=== PATIENT | female | born 1980 | race Caucasian/White ===

== ENCOUNTER → 2017-01-17 | Outpatient (CLI) | payer OTHER ==
[~2017-01-17] MED LIST: ACET-1757 PO; ALPR0.25 PO; CEFD300C37 PO; DIPHENHYDRAMINE 50 MG/ML, 1ML ONE; LEVO750T26 PO; LORA-446 PO; METO10TA82 PO; METO5TAB57 BC; OMNIPAQUE 350 MG/ML, 100ML BOTTLE ONE; ONDA4TAB7 PO; OXYC-223 PO; OXYC-302 PO; PANT40TA3 PO; PROCHLORPERAZINE; SEPTRA DS; TRAZ100T15 PO; TRAZ150T68 PO; TRAZ50TA18 PO; VENL37.52 PO
== END | disposition home or self-care (01) ==
LOC: MERGE 01-15 10:00 → RAD 08:35
PROVIDERS: ATTEND Family Medicine
DX: C18.1 Malignant neoplasm of appendix (principal); K76.89 Other specified diseases of liver; Z90.81 Acquired absence of spleen
CPT/HCPCS: 74177; J1200; Q9967

== ENCOUNTER 2017-02-12 21:19 | Emergency (ER) | payer OTHER ==
[~2017-02-12] VITALS: Ht 157.5 cm; Wt 59.9 kg
[~2017-02-12 21:19] MED LIST changes: -DIPHENHYDRAMINE 50 MG/ML, 1ML ONE; -OMNIPAQUE 350 MG/ML, 100ML BOTTLE ONE
[2017-02-12] MEDS ORDERED: SODIUM CHLORIDE FLUSH 10ML SYR IVF ONE (22:00)
[2017-02-12] MEDS ORDERED: ONDANSETRON 2MG/ML, 2ML IVPush ONE ×2 (22:00→23:30)
[2017-02-12] MEDS ORDERED: SODIUM CHLORIDE 0.9% 1,000ML IVBOLUS ONE (22:00)
[2017-02-12 22:55] LABS: ASPARTATE AMINO TRANSFERASE 13 U/L (15-37); BLOOD UREA NITROGEN 17 mg/dL (7-18)
[2017-02-12] MEDS ORDERED: ONDANSETRON 2MG/ML, 2ML ONE (23:09)
[2017-02-12] MEDS ORDERED: HYDROmorphone 1 MG/ML, 1ML ONE (23:26)
[2017-02-12] MEDS ORDERED: methylPREDNISolone SOD SUCC 125 MG/2 ML IVPush ONE (23:30)
[2017-02-12] MEDS ORDERED: HYDROmorphone 1 MG/ML, 1ML IVPush PRN (23:30)
[2017-02-12] MEDS ORDERED: DIPHENHYDRAMINE 50 MG/ML, 1ML IVPush ONE (23:30)
[2017-02-12] MEDS ORDERED: methylPREDNISolone SOD SUCC 125 MG/2 ML ONE (23:33)
[2017-02-12] MEDS ORDERED: DIPHENHYDRAMINE 50 MG/ML, 1ML ONE (23:33)
[2017-02-12 23:52] LABS: HCG UR OBC PASS
[2017-02-13] MEDS ORDERED: OMNIPAQUE 350 MG/ML, 100ML BOTTLE ONE (01:00)
[2017-02-13 01:25] VITALS: BP 102/72
== END 2017-02-13 01:37 | disposition home or self-care (01) ==
LOC: ED 23:59
DX: R10.84 Generalized abdominal pain (principal); Z88.8 Allergy status to other drugs, medicaments and biological substances; F32.9 Major depressive disorder, single episode, unspecified; Z85.038 Personal history of other malignant neoplasm of large intestine; Z86.718 Personal history of other venous thrombosis and embolism
CPT/HCPCS: 36415; 74177; 80053; 81003; 81025; 83690; 85025; 96361; 96374; 96375; 99285; J1170; J1200; J2405; J2930; J7030; Q9967

== ENCOUNTER → 2018-01-02 | Outpatient (CLI) | payer OTHER ==
[~2018-01-02] MED LIST changes: +OMNIPAQUE 350 MG/ML, 100ML BOTTLE ONE; -OXYC-223 PO; +OXYC-306 PO; +TRAZ150T62 PO; -TRAZ150T68 PO
== END | disposition home or self-care (01) ==
LOC: RAD 11:09 → EDSTATUS 13:00
PROVIDERS: ATTEND Family Medicine
DX: I81 Portal vein thrombosis (principal); C18.1 Malignant neoplasm of appendix
CPT/HCPCS: 74177; Q9967

== ENCOUNTER 2019-09-03 09:04 | Day surgery (SDC) | payer OTHER ==
[~2019-09-03] VITALS: Ht 157.5 cm; Wt 70.8 kg
[~2019-09-03 09:04] MED LIST changes: -ACET-1757 PO; +ACET-2065 PO; -OMNIPAQUE 350 MG/ML, 100ML BOTTLE ONE; +TRAZ-175 PO; -TRAZ100T15 PO; -TRAZ50TA18 PO; +TRAZ50TA66 PO
[2019-09-03] MEDS ORDERED: LACTATED RINGERS 1,000 ML IV SCH (09:35)
[2019-09-03 09:37] VITALS: BP 132/90
[2019-09-03] MEDS ORDERED: PROM25SU35 PR (09:51)
[2019-09-03] MEDS ORDERED: GABA300C10 PO (09:51)
[2019-09-03] MEDS ORDERED: OXYC5CAP2 PO (09:51)
[2019-09-03] MEDS ORDERED: AMIT25TA PO (09:51)
[2019-09-03] MEDS ORDERED: RIVA20TA PO (09:51)
[2019-09-03] MEDS ORDERED: OMEP-110 PO (09:51)
[2019-09-03] MEDS ORDERED: ACET325C6 PO (09:51)
[2019-09-03] MEDS ORDERED: [UNRECOGNIZED DRUG - OTHER] (09:51)
[2019-09-03] MEDS ORDERED: PLEASE ENTER HEIGHT AND WEIGHT MC SCH (10:00)
[2019-09-03 10:05] LABS: MICROSCOPIC AUTO
[2019-09-03 10:07] LABS: CULTURE INDICATED? NO
[2019-09-03 10:51] LABS: BASOPHILS # (AUTO) 0.06 x10^3/uL (0-0.1); BASOPHILS % (AUTO) 1 % (0-1); EOSINOPHILS # (AUTO) 0.35 x10^3/uL (0-0.4); EOSINOPHILS % (AUTO) 4 % (1-7); LYMPHOCYTES # (AUTO) 2.33 x10^3/uL (1-3.4); LYMPHOCYTES % (AUTO) 26 % (22-44); MD NO; MEAN CORPUSCULAR HGB CONC 31.8 g/dL (32.4-35.8); MEAN CORPUSCULAR VOLUME 91.2 fL (80-100); MEAN PLATELET VOLUME 8.5 fL (7.4-10.4); MONOCYTES # (AUTO) 0.63 x10^3/uL (0.2-0.8); MONOCYTES % (AUTO) 7 % (2-9); NEUTROPHILS # (AUTO) 5.46 x10^3/uL (1.8-6.8); NEUTROPHILS % (AUTO) 62 % (42-75); PLATELET COUNT 429 x10^3/uL (130-400); RED BLOOD COUNT 4.15 x10^6/uL (3.82-5.3); RED CELL DISTRIBUTION WIDTH 15.4 % (9.6-15.2)
[2019-09-03 11:02] LABS: ANION GAP 9 mmol/L (5-15); CALCIUM 8.6 mg/dL (8.5-10.1); CHLORIDE 106 mmol/L (98-107)
[2019-09-03] MEDS ORDERED: MEPERIDINE/PF 25MG/ML,1ML IVPush PRN (13:00)
[2019-09-03] MEDS ORDERED: hydrALAzine 20 MG/ML, 1ML IV PRN (13:00)
[2019-09-03] MEDS ORDERED: PROMETHAZINE 25 MG/ML, 1ML IV PRN (13:00)
[2019-09-03] MEDS ORDERED: ALBUTEROL/IPRATROPIUM 2.5MG/0.5MG, 3 ML NPPB PRN (13:00)
[2019-09-03] MEDS ORDERED: MIDAZOLAM 1 MG/ML, 2ML IV PRN (13:00)
[2019-09-03] MEDS ORDERED: ACETAMINOPHEN 325 MG TABLET PO PRN (13:00)
[2019-09-03] MEDS ORDERED: FENTANYL PF 100 MCG/2ML IV PRN (13:00)
[2019-09-03] MEDS ORDERED: HYDROmorphone 2 MG/ML, 1ML IVPush PRN (13:00)
[2019-09-03] MEDS ORDERED: FENTANYL PF 100 MCG/2ML ONE (13:06)
[2019-09-03] MEDS ORDERED: MIDAZOLAM 1 MG/ML, 2ML ONE (13:06)
[2019-09-03] MEDS ORDERED: HYDROmorphone 2 MG/ML, 1ML ONE (13:48)
[2019-09-03] MEDS ORDERED: DIPHENHYDRAMINE 50 MG/ML, 1ML ONE (13:51)
[2019-09-03] MEDS ORDERED: PROPOFOL 10 MG/ML, 20ML ONE (14:26)
[2019-09-03] MEDS ORDERED: ONDANSETRON 2MG/ML, 2ML ONE (14:26)
[2019-09-03] MEDS ORDERED: DEXAMETHASONE 4 MG/ML, 1ML ONE (14:26)
[2019-09-03] MEDS ORDERED: CEFAZOLIN 1,000 MG ONE (14:26)
[2019-09-03] MEDS: OXYcodone 5 MG/5 ML ORAL.SOL UDC PO PRN ×2 (16:45→17:40)
== END 2019-09-03 17:45 | disposition home or self-care (01) ==
LOC: OUT 09:04
PROVIDERS: ATTEND Student in an Organized Health Care Education/Training Program
DX: N13.5 Crossing vessel and stricture of ureter without hydronephrosis (principal); C67.4 Malignant neoplasm of posterior wall of bladder; C67.0 Malignant neoplasm of trigone of bladder; K21.9 Gastro-esophageal reflux disease without esophagitis; F32.9 Major depressive disorder, single episode, unspecified; Z86.711 Personal history of pulmonary embolism; Z79.01 Long term (current) use of anticoagulants; Z79.891 Long term (current) use of opiate analgesic; Z79.899 Other long term (current) drug therapy; Z88.0 Allergy status to penicillin; Z88.1 Allergy status to other antibiotic agents; Z88.8 Allergy status to other drugs, medicaments and biological substances; Z90.49 Acquired absence of other specified parts of digestive tract
CPT/HCPCS: 36415; 52005; 52204; 80048; 81001; 85025; 88305; 88341; 88342; C1769; J0690; J1100; J1170; J1200; J2250; J2405; J2704; J3010; J7120

== ENCOUNTER 2020-05-18 15:10 | Day surgery (SDC) | payer OTHER ==
[~2020-05-18] VITALS: Ht 157.5 cm; Wt 76.0 kg
[~2020-05-18 15:10] MED LIST changes: +ACET325C6 PO; +AMIT25TA PO; +GABA300C10 PO; +OMEP-110 PO; +OXYC5CAP2 PO; +PROM25SU35 PR; +RIVA20TA PO; +[UNRECOGNIZED DRUG - OTHER]
[2020-05-18 15:42] VITALS: BP 116/82
[2020-05-18] MEDS ORDERED: CHLORHEXIDINE 15 ML UDC MM STA (15:47)
[2020-05-18] MEDS ORDERED: LACTATED RINGERS 1,000 ML IV SCH (16:00)
[2020-05-18] MEDS ORDERED: LEVO500T8 PO (16:03)
[2020-05-18] MEDS ORDERED: TROS60CA3 PO (16:03)
[2020-05-18 16:35] LABS: BASOPHILS % (AUTO) 1 % (0-1); EOSINOPHILS % (AUTO) 3 % (1-7); LYMPHOCYTES % (AUTO) 28 % (22-44); MEAN CORPUSCULAR HEMOGLOBIN 33.7 pg (27.0-34.8); MEAN CORPUSCULAR HGB CONC 32.9 g/dL (32.4-35.8); MEAN PLATELET VOLUME 7.9 fL (7.4-10.4); MONOCYTES % (AUTO) 9 % (2-9); NEUTROPHILS % (AUTO) 59 % (42-75); PLATELET COUNT 397 x10^3/uL (130-400); RED BLOOD COUNT 3.91 x10^6/uL (3.82-5.3); RED CELL DISTRIBUTION WIDTH 14.6 % (9.6-15.2)
[2020-05-18 16:40] LABS: INTERNATIONAL NORMALIZED RATIO 0.97 (0.93-1.1); PROTHROMBIN TIME 10.3 Seconds (9.6-11.5)
[2020-05-18 16:41] LABS: ANION GAP 5 mmol/L (5-15); CALCIUM 9.3 mg/dL (8.5-10.1); CHLORIDE 105 mmol/L (98-107); CREATININE 1.01 mg/dL (0.55-1.02)
[2020-05-18 16:52] LABS: MD NO
[2020-05-18] MEDS ORDERED: MIDAZOLAM 1 MG/ML, 2ML ONE (17:23)
[2020-05-18] MEDS ORDERED: ONDANSETRON 2MG/ML, 2ML ONE (17:51)
[2020-05-18] MEDS ORDERED: PROPOFOL 10 MG/ML, 20ML ONE (17:51)
[2020-05-18] MEDS ORDERED: DEXAMETHASONE 4 MG/ML, 1ML ONE (17:51)
[2020-05-18] MEDS ORDERED: GENTAMICIN 80 MG/2 ML ONE (18:07)
[2020-05-18] MEDS ORDERED: OPIUM/BELLADONNA SUPP.RECT 16.2-60 MG ONE (18:27)
[2020-05-18] MEDS ORDERED: OXYcodone 5 MG/5 ML ORAL.SOL UDC PO PRN (18:30)
[2020-05-18] MEDS ORDERED: DIAZEPAM 5 MG/ML, 2ML IVPush PRN (18:30)
[2020-05-18] MEDS ORDERED: DIPHENHYDRAMINE 50 MG/ML, 1ML IVPush PRN (18:30)
[2020-05-18] MEDS ORDERED: MEPERIDINE/PF 25MG/0.5ML IVPush PRN (18:30)
[2020-05-18] MEDS ORDERED: PROMETHAZINE 25 MG/ML, 1ML IVPush PRN (18:30)
[2020-05-18] MEDS ORDERED: ACETAMINOPHEN 325 MG TABLET PO PRN (18:30)
[2020-05-18] MEDS ORDERED: ONDANSETRON 2MG/ML, 2ML IVPush PRN (18:30)
[2020-05-18] MEDS ORDERED: FENTANYL PF 100 MCG/2ML ONE (18:37)
[2020-05-18] MEDS ORDERED: OXYcodone 5 MG/5 ML ORAL.SOL UDC ONE (19:46)
[2020-05-18] MEDS ORDERED: ACETAMINOPHEN 650 MG/20.3 ML UDC ONE (19:46)
[2020-05-18] MEDS ORDERED: HYDROmorphone 1 MG/ML, 1ML INJ ONE (19:52)
[2020-05-18] MEDS: HYDROmorphone 1 MG/ML, 1ML INJ IVPush PRN ×2 (19:53→20:04)
== END 2020-05-18 21:50 | disposition home or self-care (01) ==
LOC: OR 15:10 → 4NE 20:25 → OR 21:50
PROVIDERS: ATTEND Student in an Organized Health Care Education/Training Program
DX: T83.192A Other mechanical complication of indwelling ureteral stent, initial encounter (principal); Z20.828 Contact with and (suspected) exposure to other viral communicable diseases; N13.30 Unspecified hydronephrosis; C67.9 Malignant neoplasm of bladder, unspecified; C78.6 Secondary malignant neoplasm of retroperitoneum and peritoneum; Z79.01 Long term (current) use of anticoagulants; Z79.899 Other long term (current) drug therapy; Z85.09 Personal history of malignant neoplasm of other digestive organs; Z86.718 Personal history of other venous thrombosis and embolism; Z86.711 Personal history of pulmonary embolism; Z88.0 Allergy status to penicillin; Z88.8 Allergy status to other drugs, medicaments and biological substances; Z90.49 Acquired absence of other specified parts of digestive tract; Z92.21 Personal history of antineoplastic chemotherapy; Z93.3 Colostomy status; Z91.041 Radiographic dye allergy status; Y83.8 Other surgical procedures as the cause of abnormal reaction of the patient, or of later complication, without mention of misadventure at the time of the procedure
CPT/HCPCS: 36415; 52235; 52332; 74018; 80048; 85025; 85610; 85730; 87635; 88305; C2617; J1100; J1170; J1580; J2250; J2405; J2704; J3010; J7120; 76000; G0378

== ENCOUNTER 2020-06-20 08:00 | Observation (INO) | payer OTHER ==
[~2020-06-20] VITALS: Ht 157.5 cm; Wt 73.0 kg
[~2020-06-20 08:00] MED LIST changes: +LEVO500T8 PO; +TROS60CA3 PO
[2020-06-20] MEDS ORDERED: ONABOTULINUMTOXINA 100 UNITS ONE (10:02)
[2020-06-20] MEDS ORDERED: FENTANYL PF 100 MCG/2ML ONE (11:03)
[2020-06-20] MEDS ORDERED: MIDAZOLAM 1 MG/ML, 2ML ONE (11:03)
[2020-06-20] MEDS ORDERED: LIDOCAINE-MPF 2% ,5ML ONE (11:50)
[2020-06-20] MEDS ORDERED: GENTAMICIN 80 MG/2 ML ONE (11:50)
[2020-06-20] MEDS ORDERED: MEPERIDINE/PF 100 MG/ML ONE (11:55)
[2020-06-20] MEDS ORDERED: METHOCARBAMOL 1,000 MG in DEXTROSE 5% 100 ML IV PRN (12:00)
[2020-06-20] MEDS ORDERED: hydrALAzine 20 MG/ML, 1ML IV PRN (12:00)
[2020-06-20] MEDS ORDERED: ACETAMINOPHEN 325 MG TABLET PO PRN (12:00)
[2020-06-20] MEDS ORDERED: ALBUTEROL SULFATE 2.5 MG/3 ML NPPB PRN (12:00)
[2020-06-20] MEDS ORDERED: LABETALOL 5MG/ML, 20ML IV PRN (12:00)
[2020-06-20] MEDS ORDERED: PROMETHAZINE 25 MG/ML, 1ML IVPush PRN (12:00)
[2020-06-20] MEDS ORDERED: MEPERIDINE/PF 25MG/0.5ML IVPush PRN (12:00)
[2020-06-20] MEDS ORDERED: HYDROmorphone 1 MG/ML, 1ML INJ IVPush PRN (12:00)
[2020-06-20] MEDS ORDERED: OXYcodone 5 MG/5 ML ORAL.SOL UDC PO PRN (12:00)
[2020-06-20] MEDS ORDERED: LORazepam 2 MG/ML, 1ML IVPush PRN (12:00)
[2020-06-20] MEDS ORDERED: DEXAMETHASONE 4 MG/ML, 1ML ONE (12:20)
[2020-06-20] MEDS ORDERED: ONDANSETRON 2MG/ML, 2ML ONE (12:20)
[2020-06-20] MEDS ORDERED: PROPOFOL 10 MG/ML, 20ML ONE (12:20)
[2020-06-20] MEDS ORDERED: PLEASE ENTER HEIGHT AND WEIGHT MC SCH (12:30)
[2020-06-20 13:36] VITALS: BP 100/71
== END 2020-06-20 16:00 | disposition home or self-care (01) ==
LOC: OR 08:00 → 4NE 08:28 → OR 13:42 → DCLOUNGE 15:53
PROVIDERS: ADMIT Student in an Organized Health Care Education/Training Program; ATTEND Student in an Organized Health Care Education/Training Program
DX: C78.5 Secondary malignant neoplasm of large intestine and rectum (principal); Z20.828 Contact with and (suspected) exposure to other viral communicable diseases; C79.11 Secondary malignant neoplasm of bladder; C78.6 Secondary malignant neoplasm of retroperitoneum and peritoneum; N13.30 Unspecified hydronephrosis; N32.81 Overactive bladder; N32.89 Other specified disorders of bladder; N39.41 Urge incontinence; I25.10 Atherosclerotic heart disease of native coronary artery without angina pectoris; K21.9 Gastro-esophageal reflux disease without esophagitis; Z88.0 Allergy status to penicillin; Z86.711 Personal history of pulmonary embolism; Z93.3 Colostomy status; Z85.51 Personal history of malignant neoplasm of bladder; Z79.899 Other long term (current) drug therapy
CPT/HCPCS: 52235; 52287; 87635; G0378; J0585; J1100; J1580; J2175; J2250; J2405; J2704; J3010; J3490

== ENCOUNTER 2020-09-08 13:35 | Day surgery (SDC) | payer OTHER ==
[~2020-09-08] VITALS: Ht 157.5 cm; Wt 79.4 kg
[~2020-09-08 13:35] MED LIST changes: -OXYC-302 PO; -OXYC-306 PO; +OXYC1TAB14 PO; +OXYC1TAB17 PO
[2020-09-08] MEDS ORDERED: XELODA PO (14:07)
[2020-09-08] MEDS ORDERED: SULF-16 PO (14:07)
[2020-09-08] MEDS ORDERED: PLEC3TAB2 PO (14:07)
[2020-09-08] MEDS ORDERED: LACTATED RINGERS 1,000 ML IV SCH (14:30)
[2020-09-08] MEDS ORDERED: CHLORHEXIDINE 15 ML UDC MM ONE (14:30)
[2020-09-08 14:51] VITALS: BP 103/73
[2020-09-08] MEDS ORDERED: MIDAZOLAM 1 MG/ML, 2ML ONE (15:09)
[2020-09-08] MEDS ORDERED: MORPHINE SULFATE 4 MG/ML, 1ML ONE (15:13)
[2020-09-08] MEDS ORDERED: CEFAZOLIN 1,000 MG ONE (15:38)
[2020-09-08] MEDS ORDERED: DEXAMETHASONE 4 MG/ML, 1ML ONE (15:38)
[2020-09-08] MEDS ORDERED: PROPOFOL 10 MG/ML, 20ML ONE (15:38)
[2020-09-08] MEDS ORDERED: ONDANSETRON 2MG/ML, 2ML ONE (15:38)
[2020-09-08] MEDS ORDERED: HYDROmorphone 1 MG/ML, 1ML INJ IVPush PRN (16:00)
[2020-09-08] MEDS ORDERED: PROMETHAZINE 25 MG SUPP PR PRN (16:00)
[2020-09-08] MEDS ORDERED: LORazepam 2 MG/ML, 1ML IVPush PRN (16:00)
[2020-09-08] MEDS ORDERED: PROMETHAZINE 25 MG/ML, 1ML IVPush PRN (16:00)
[2020-09-08] MEDS ORDERED: ACETAMINOPHEN 325 MG TABLET PO PRN (16:00)
[2020-09-08] MEDS ORDERED: ONDANSETRON 2MG/ML, 2ML IVPush PRN (16:00)
[2020-09-08] MEDS ORDERED: MEPERIDINE/PF 25MG/0.5ML IVPush PRN (16:00)
[2020-09-08] MEDS ORDERED: OXYcodone 5 MG/5 ML ORAL.SOL UDC PO PRN (16:00)
[2020-09-08] MEDS ORDERED: OXYcodone 5 MG/5 ML ORAL.SOL UDC ONE (16:06)
== END 2020-09-08 18:00 | disposition home or self-care (01) ==
LOC: OUT 13:35
PROVIDERS: ATTEND Student in an Organized Health Care Education/Training Program
DX: T83.192A Other mechanical complication of indwelling ureteral stent, initial encounter (principal); N13.30 Unspecified hydronephrosis; Z20.822 Contact with and (suspected) exposure to COVID-19; Z79.01 Long term (current) use of anticoagulants; Z79.899 Other long term (current) drug therapy; Z86.718 Personal history of other venous thrombosis and embolism; Z88.0 Allergy status to penicillin; Z88.8 Allergy status to other drugs, medicaments and biological substances; Y83.8 Other surgical procedures as the cause of abnormal reaction of the patient, or of later complication, without mention of misadventure at the time of the procedure
CPT/HCPCS: 52332; 74018; 87635; C2617; J0690; J1100; J2250; J2405; J2704; 76000

== ENCOUNTER 2020-10-05 12:12 | Day surgery (SDC) | payer OTHER ==
[~2020-10-05] VITALS: Ht 157.5 cm; Wt 79.6 kg
[~2020-10-05 12:12] MED LIST changes: +CAPE500T24 PO; +GABA300C PO; +PLEC3TAB2 PO; +RIVA10TA2 PO; +SULF-16 PO; +XELODA PO
[2020-10-05] MEDS ORDERED: LABETALOL 5MG/ML, 20ML IV PRN (13:00)
[2020-10-05] MEDS ORDERED: HYDROcodone/APAP 7.5-325MG/15ML UDC PO PRN (13:00)
[2020-10-05] MEDS ORDERED: CHLORHEXIDINE 15 ML UDC MM ONE (13:00)
[2020-10-05] MEDS ORDERED: DIPHENHYDRAMINE 50 MG/ML, 1ML IVPush PRN (13:00)
[2020-10-05] MEDS ORDERED: LORazepam 2 MG/ML, 1ML IVPush PRN ×2 (13:00→15:00)
[2020-10-05] MEDS ORDERED: LACTATED RINGERS 1,000 ML IV SCH (13:00)
[2020-10-05] MEDS ORDERED: FENTANYL PF 100 MCG/2ML IV PRN ×2 (13:00→15:00)
[2020-10-05] MEDS ORDERED: hydrALAzine 20 MG/ML, 1ML IV PRN (13:00)
[2020-10-05] MEDS ORDERED: HALOPERIDOL 5 MG/ML IV PRN (13:00)
[2020-10-05] MEDS ORDERED: PROMETHAZINE 25 MG/ML, 1ML IVPush PRN (13:00)
[2020-10-05] MEDS ORDERED: HYDROmorphone 1 MG/ML, 1ML INJ IVPush PRN ×2 (13:00→15:00)
[2020-10-05 13:02] VITALS: BP 104/73
[2020-10-05] MEDS ORDERED: ONABOTULINUMTOXINA 100 UNITS ONE (14:16)
[2020-10-05] MEDS ORDERED: FENTANYL PF 100 MCG/2ML ONE (14:35)
[2020-10-05] MEDS ORDERED: MIDAZOLAM 1 MG/ML, 2ML ONE (14:35)
[2020-10-05] MEDS ORDERED: LIDOCAINE 2% 100MG/5ML SYRINGE ONE (14:37)
[2020-10-05] MEDS ORDERED: PROPOFOL 10 MG/ML, 20ML ONE (14:37)
[2020-10-05] MEDS ORDERED: SUCCINYLCHOLINE 20 MG/ML, 10ML ONE (14:42)
[2020-10-05] MEDS ORDERED: ACETAMINOPHEN 325 MG TABLET PO PRN (15:00)
[2020-10-05] MEDS ORDERED: OXYcodone 5 MG/5 ML ORAL.SOL UDC PO PRN (15:00)
[2020-10-05] MEDS ORDERED: KETOROLAC 30 MG/1 ML IVPush PRN (15:00)
[2020-10-05] MEDS ORDERED: MEPERIDINE/PF 25MG/0.5ML IVPush PRN (15:00)
[2020-10-05] MEDS ORDERED: PHENYLEPHRINE 10 MG/ML ONE (15:19)
[2020-10-05] MEDS ORDERED: KETOROLAC 30 MG/1 ML ONE (15:19)
[2020-10-05] MEDS ORDERED: DEXAMETHASONE 4 MG/ML, 1ML ONE (15:19)
[2020-10-05] MEDS ORDERED: ONDANSETRON 2MG/ML, 2ML ONE (15:19)
== END 2020-10-05 18:15 | disposition home or self-care (01) ==
LOC: OUT 12:12
PROVIDERS: ATTEND Student in an Organized Health Care Education/Training Program
DX: N13.30 Unspecified hydronephrosis (principal); N39.41 Urge incontinence; C67.9 Malignant neoplasm of bladder, unspecified; C78.5 Secondary malignant neoplasm of large intestine and rectum; Z20.822 Contact with and (suspected) exposure to COVID-19; Z79.899 Other long term (current) drug therapy; Z88.8 Allergy status to other drugs, medicaments and biological substances; Z96.0 Presence of urogenital implants
CPT/HCPCS: 52287; J0330; J0585; J1100; J1885; J2250; J2370; J2405; J2704; J3010; J7120; U0003

== ENCOUNTER 2020-12-22 20:52 | Emergency (ER) | payer OTHER ==
[~2020-12-22] VITALS: Ht 157.5 cm; Wt 83.1 kg
--- NOTE | 2020-12-22 21:28 | NUR ---
CC OF SOB AND "DRY COUGHING SPELLS" AND PAIN IN BLADDER. 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 PT ALSO STATES SHE GETS BOTOX IN HER BLADDER TO HELP WITH SPASMS AND STATES THIS FEELS SIMILAR TO PAST ISSUES WITH BLADDER. SP02 98% ON RA. PT IS ON ORAL CHEMO, 2 WEEKS ON 1 WEEK OFF, LAST TREATMENT LAST SUNDAY.
--- NOTE | 2020-12-22 22:16 | NUR ---
RELIEF RN: BINDU ESBT, LABS DRAWN & SENT. AMBULATORY TO RESTROOM C STEADY GAIT, UA COLLECTED & SENT. PT DENIES ANY NEEDS. CALL LIGHT IN REACH. CXR COMPLETED. WILL CTM.
[2020-12-22 22:20] LABS: BASOPHILS % (AUTO) 1 % (0-1); EOSINOPHILS % (AUTO) 3 % (1-7); LYMPHOCYTES % (AUTO) 28 % (22-44); MEAN CORPUSCULAR HEMOGLOBIN 31.6 pg (27.0-34.8); MEAN CORPUSCULAR HGB CONC 33.3 g/dL (32.4-35.8); MEAN PLATELET VOLUME 7.2 fL (7.4-10.4); MONOCYTES % (AUTO) 11 % (2-9); NEUTROPHILS % (AUTO) 58 % (42-75); PLATELET COUNT 437 x10^3/uL (130-400); RED BLOOD COUNT 2.74 x10^6/uL (3.82-5.3); RED CELL DISTRIBUTION WIDTH 26.7 % (9.6-15.2)
[2020-12-22] MEDS ORDERED: ONDANSETRON 2MG/ML, 2ML ONE (22:25)
[2020-12-22] MEDS ORDERED: MORPHINE SULFATE 4 MG/ML, 1ML ONE (22:25)
[2020-12-22] MEDS ORDERED: MORPHINE SULFATE 4 MG/ML, 1ML IVPush PRN (22:30)
[2020-12-22] MEDS ORDERED: ONDANSETRON 2MG/ML, 2ML IVPush ONE (22:30)
[2020-12-22 22:31] LABS: ALANINE AMINOTRANSFERASE 19 U/L (12-78); ALBUMIN 3.2 g/dL (3.4-5.0); ANION GAP 9 mmol/L (5-15); CALCIUM 8.2 mg/dL (8.5-10.1); CHLORIDE 105 mmol/L (98-107)
[2020-12-22 22:36] LABS: ALKALINE PHOSPHATASE 133 U/L (45-117); BILIRUBIN,TOTAL 0.2 mg/dL (0.2-1.0); TOTAL PROTEIN 7.3 g/dL (6.4-8.2); TROPONIN I < 0.015 ng/mL (0.000-0.045)
[2020-12-22 22:37] LABS: MD MORPH REVIEW ONLY
[2020-12-22 22:38] LABS: <PLATELET ESTIMATE> ADEQUATE; <PLT MORPHOLOGY> NORMAL PLT MORPH; ANISOCYTOSIS 2+; HOWELL-JOLLY BODIES 1+; TARGET CELLS 1+
[2020-12-22 22:38] LABS: D-DIMER 0.44 ug/mlFEU (0.00-0.52); INTERNATIONAL NORMALIZED RATIO 0.99 (0.93-1.1); PROTHROMBIN TIME 10.6 Seconds (9.6-11.5)
[2020-12-22 22:40] LABS: HYPOCHROMIA 1+
[2020-12-22 22:54] LABS: MICROSCOPIC INDICATED
--- NOTE | 2020-12-22 23:10 | NUR ---
US AT BEDSIDE
[2020-12-23] MEDS ORDERED: DOXYCYCLINE 100MG TABLET PO ONE
[2020-12-23] MEDS ORDERED: DOXYCYCLINE 100MG TABLET ONE (00:22)
[2020-12-23 00:24] VITALS: BP 95/67
== END 2020-12-23 01:12 | disposition home or self-care (01) ==
LOC: ED 22:10
DX: J18.1 Lobar pneumonia, unspecified organism (principal); R06.02 Shortness of breath; R00.0 Tachycardia, unspecified; Z86.718 Personal history of other venous thrombosis and embolism; Z90.49 Acquired absence of other specified parts of digestive tract
CPT/HCPCS: 36415; 71045; 80053; 81001; 83880; 84484; 85025; 85379; 85610; 87086; 93005; 93970; 96374; 96375; 99285; J2270; J2405

== ENCOUNTER 2020-12-25 15:03 | Emergency (ER) | payer OTHER ==
[~2020-12-25] VITALS: Ht 157.5 cm; Wt 83.0 kg
--- NOTE | 2020-12-25 15:17 | NUR ---
EKG COMPLETED IN TRIAGE.
--- NOTE | 2020-12-25 15:31 | NUR ---
SMALL AMOUNT OF BLOOD TINGED URINE COLLECTED/WALKED TO LAB
[2020-12-25 15:49] LABS: MICROSCOPIC INDICATED
[2020-12-25 15:55] LABS: BASOPHILS % (AUTO) 1 % (0-1); EOSINOPHILS % (AUTO) 4 % (1-7); LYMPHOCYTES % (AUTO) 37 % (22-44); MEAN CORPUSCULAR HEMOGLOBIN 31.4 pg (27.0-34.8); MEAN CORPUSCULAR HGB CONC 32.6 g/dL (32.4-35.8); MEAN PLATELET VOLUME 7.3 fL (7.4-10.4); MONOCYTES % (AUTO) 10 % (2-9); NEUTROPHILS % (AUTO) 49 % (42-75); PLATELET COUNT 418 x10^3/uL (130-400); RED BLOOD COUNT 2.69 x10^6/uL (3.82-5.3); RED CELL DISTRIBUTION WIDTH 26.7 % (9.6-15.2)
[2020-12-25 16:05] LABS: ALANINE AMINOTRANSFERASE 21 U/L (12-78); ALBUMIN 3.2 g/dL (3.4-5.0); ANION GAP 8 mmol/L (5-15); CALCIUM 8.5 mg/dL (8.5-10.1); CHLORIDE 107 mmol/L (98-107); CREATININE 1.09 mg/dL (0.55-1.02)
[2020-12-25 16:08] LABS: ALKALINE PHOSPHATASE 141 U/L (45-117); BILIRUBIN,TOTAL 0.3 mg/dL (0.2-1.0)
[2020-12-25 16:18] LABS: MD MORPH REVIEW ONLY
[2020-12-25 16:19] LABS: ANISOCYTOSIS 2+
[2020-12-25 16:20] LABS: HOWELL-JOLLY BODIES 2+; HYPOCHROMIA 1+; POLYCHROMASIA 1+; TARGET CELLS 1+
[2020-12-25 16:22] LABS: <PLATELET ESTIMATE> INCREASED; <PLT MORPHOLOGY> NORMAL PLT MORPH
--- NOTE | 2020-12-25 18:18 | NUR ---
EDGE INKER UPPERS: PT TO ROOM FROM LOBBY
--- NOTE | 2020-12-25 18:19 | NUR ---
REPEAT VS, REPEAT FS 81
--- NOTE | 2020-12-25 19:10 | NUR ---
PT PROVIDED W/ JUICE OKAY PER ERP.
--- NOTE | 2020-12-25 19:37 | NUR ---
THIS IS A 40 YO F W/ C/O FATIGUE AND LUQ ABD DISCOMFORT. PT REPORTS BS 49 YESTERDAY AND HAD SAME SYMPTOMS, WAS TOLD BY ONCOLOGIST TO COME TO ED IF SYMPTOMS PERSIST. PT HAS HX OF CANCER W/ METASTASIS. PT RESTING ON GURNEY W/ CALL LIGHT IN REACH AND SIDE RAILS UPX2. RESP EVEN AND UNLABORED, NADN. AWAITING RECHECK.
[2020-12-25 20:07] LABS: % IRON SATURATION 3 % (20-55); IRON LEVEL 16 mcg/dL (50-170); TOTAL IRON BINDING CAPACITY 500 mcg/dL (250-450)
[2020-12-25 20:49] VITALS: BP 111/64
--- NOTE | 2020-12-25 20:53 | NUR ---
Patient/Caregiver given discharge instructions and they have confirmed that they understand the instructions. Patient ambulatory with steady gait. NAD, all questions answered appropriately, denies additional needs at this time. No personal belongings left in room after discharge.
== END 2020-12-25 20:55 | disposition home or self-care (01) ==
LOC: ED 17:09
DX: R53.1 Weakness (principal); R42 Dizziness and giddiness; D64.9 Anemia, unspecified; E16.2 Hypoglycemia, unspecified; C18.1 Malignant neoplasm of appendix; K59.00 Constipation, unspecified; R00.0 Tachycardia, unspecified; Z90.49 Acquired absence of other specified parts of digestive tract; Z90.710 Acquired absence of both cervix and uterus; Z88.6 Allergy status to analgesic agent; Z88.0 Allergy status to penicillin; Z88.1 Allergy status to other antibiotic agents; Z91.041 Radiographic dye allergy status; Z90.89 Acquired absence of other organs
CPT/HCPCS: 36415; 71045; 80053; 81001; 82962; 83540; 83550; 83690; 85025; 87086; 93005; 99285

== ENCOUNTER 2021-01-03 14:49 | Outpatient (CLI) | payer OTHER ==
[2021-01-03] MEDS ORDERED: TAMS-11 PO (16:25)
[2021-01-03] MEDS ORDERED: NITR100C56 PO (16:25)
== END 2021-01-03 23:59 | disposition home or self-care (01) ==
LOC: STAR 14:49
PROVIDERS: ATTEND Student in an Organized Health Care Education/Training Program
DX: Z02.9 Encounter for administrative examinations, unspecified (principal)

== ENCOUNTER 2021-01-06 13:31 | Day surgery (SDC) | payer OTHER ==
[2021-01-03 16:24] LABS: BASOPHILS % (AUTO) 1 % (0-1); EOSINOPHILS % (AUTO) 2 % (1-7); LYMPHOCYTES % (AUTO) 31 % (22-44); MEAN CORPUSCULAR HEMOGLOBIN 30.1 pg (27.0-34.8); MEAN CORPUSCULAR HGB CONC 32.4 g/dL (32.4-35.8); MEAN PLATELET VOLUME 7.9 fL (7.4-10.4); MONOCYTES % (AUTO) 10 % (2-9); NEUTROPHILS % (AUTO) 56 % (42-75); PLATELET COUNT 505 x10^3/uL (130-400); RED CELL DISTRIBUTION WIDTH 25.9 % (9.6-15.2)
[2021-01-03 16:35] LABS: INTERNATIONAL NORMALIZED RATIO 1.03 (0.93-1.1)
[2021-01-03 16:37] LABS: ANION GAP 6 mmol/L (5-15); CALCIUM 8.5 mg/dL (8.5-10.1); CHLORIDE 102 mmol/L (98-107); CREATININE 1.05 mg/dL (0.55-1.02)
[2021-01-03 17:07] LABS: ANISOCYTOSIS 1+; HOWELL-JOLLY BODIES 1+; MICROCYTOSIS 1+; TARGET CELLS 1+
[2021-01-03 17:08] LABS: MICROSCOPIC INDICATED
[2021-01-03 17:08] LABS: <PLATELET ESTIMATE> INCREASED; GIANT PLATELETS 1+
[~2021-01-06] VITALS: Ht 157.5 cm; Wt 81.4 kg
[~2021-01-06 13:31] MED LIST changes: +NITR100C56 PO; +TAMS-11 PO
[2021-01-06] MEDS ORDERED: CHLORHEXIDINE 15 ML UDC ONE (13:44)
[2021-01-06] MEDS ORDERED: CLINDAMYCIN 150 MG/ML, 6ML ONE (13:52)
[2021-01-06 13:57] VITALS: BP 122/85
[2021-01-06] MEDS ORDERED: LACTATED RINGERS 1,000 ML IV SCH (14:00)
[2021-01-06] MEDS ORDERED: ONABOTULINUMTOXINA 100 UNITS IM PRN (14:00)
[2021-01-06] MEDS ORDERED: CHLORHEXIDINE 15 ML UDC PO ONE (14:00)
[2021-01-06] MEDS ORDERED: OMNIPAQUE 350 MG/ML, 50 ML BOTTLE ONE (14:06)
[2021-01-06] MEDS ORDERED: FENTANYL PF 100 MCG/2ML ONE (14:20)
[2021-01-06] MEDS ORDERED: MIDAZOLAM 1 MG/ML, 2ML ONE (14:20)
[2021-01-06] MEDS ORDERED: GENTAMICIN 80 MG/2 ML ONE (14:47)
[2021-01-06] MEDS ORDERED: PROPOFOL 10 MG/ML, 20ML ONE (14:57)
[2021-01-06] MEDS ORDERED: CEFAZOLIN 1,000 MG ONE (14:57)
[2021-01-06] MEDS ORDERED: ONDANSETRON 2MG/ML, 2ML ONE (14:57)
[2021-01-06] MEDS ORDERED: DEXAMETHASONE 4 MG/ML, 1ML ONE (14:57)
[2021-01-06] MEDS ORDERED: HYDROmorphone 1 MG/ML, 1ML INJ ONE (15:44)
[2021-01-06] MEDS ORDERED: OXYcodone 5 MG/5 ML ORAL.SOL UDC ONE (15:44)
[2021-01-06] MEDS ORDERED: EPHEDRINE 50 MG/ML, 1ML IVPush PRN (16:00)
[2021-01-06] MEDS ORDERED: ACETAMINOPHEN 325 MG TABLET PO PRN (16:00)
[2021-01-06] MEDS ORDERED: ONDANSETRON 2MG/ML, 2ML IVPush PRN (16:00)
[2021-01-06] MEDS ORDERED: morphine SULFATE 10 MG/ML, 1ML IVPush PRN (16:00)
[2021-01-06] MEDS ORDERED: FENTANYL PF 100 MCG/2ML IV PRN (16:00)
[2021-01-06] MEDS ORDERED: OXYcodone 5 MG/5 ML ORAL.SOL UDC PO PRN (16:00)
[2021-01-06] MEDS ORDERED: hydrALAzine 20 MG/ML, 1ML IV PRN (16:00)
[2021-01-06] MEDS ORDERED: PROMETHAZINE 25 MG/ML, 1ML IVPush PRN (16:00)
[2021-01-06] MEDS ORDERED: LABETALOL 5MG/ML, 20ML IV PRN (16:00)
[2021-01-06] MEDS ORDERED: HYDROmorphone 1 MG/ML, 1ML INJ IVPush PRN (16:00)
== END 2021-01-06 17:00 | disposition home or self-care (01) ==
LOC: OUT 13:31
PROVIDERS: ATTEND Student in an Organized Health Care Education/Training Program
DX: Z46.6 Encounter for fitting and adjustment of urinary device (principal); N13.30 Unspecified hydronephrosis; N39.41 Urge incontinence; Z20.822 Contact with and (suspected) exposure to COVID-19; Z79.01 Long term (current) use of anticoagulants; Z79.899 Other long term (current) drug therapy; Z86.718 Personal history of other venous thrombosis and embolism
CPT/HCPCS: 36415; 52287; 52332; 74018; 80048; 81001; 82962; 85025; 85610; 87086; C1769; C2617; J0585; J1100; J1170; J1580; J2250; J2405; J2704; J3010; J7120; U0003; U0005; 76000; J0690; Q9967

== ENCOUNTER 2021-01-07 22:50 | Emergency (ER) | payer OTHER ==
[~2021-01-07] VITALS: Ht 165.1 cm; Wt 77.0 kg
--- NOTE | 2021-01-07 23:16 | NUR ---
PT. ARRIVES BY [facility] WITH C/O CHEST PAIN WELL LEFT FLANK PAIN. PT. IS A & O X 4 WITH A GCS OF 15. PT. HAD A STENT PLACED IN HER LEFT URETER YESTERDAY. PT. HAS A HX OF METASTATIC CANCER THROUGHOUT HER BODY AND INTO HER LUNGS. PT. HAS A COLOSTOMY ON HER LEFT LOWER QUADRANT. PT. REPORTS SIGNIFICANT PAIN WITH URINATION. IV ACCESS ESTABLISHED. PT. HAS NS INFUSING. PT. WAS TAKEN TO RADIOLOGY.
[2021-01-07] MEDS ORDERED: LORazepam 2 MG/ML, 1ML IVPush ONE (23:30)
[2021-01-07] MEDS ORDERED: HYDROmorphone 1 MG/ML, 1ML INJ IV ONE (23:30)
[2021-01-07] MEDS ORDERED: SODIUM CHLORIDE FLUSH 10ML SYR IVF ONE (23:30)
[2021-01-07] MEDS ORDERED: ONDANSETRON 2MG/ML, 2ML IVPush ONE (23:30)
--- NOTE | 2021-01-07 23:50 | NUR ---
PT. RETURNS FROM RADIOLOGY. PT. WAS MEDICATED FOR PAIN AND ANXIETY ORDERED. PT. HAS THE CP MONITOR IN PLACE. VSS. SIDERAILS REMAIN UP X 2 WITH THE CALL LIGHT IN PLACE. PT. HAS A BLANKET FOR WARMTH.
[2021-01-08 00:13] LABS: BASOPHILS % (AUTO) 1 % (0-1); EOSINOPHILS % (AUTO) 3 % (1-7); LYMPHOCYTES % (AUTO) 34 % (22-44); MEAN CORPUSCULAR HEMOGLOBIN 29.2 pg (27.0-34.8); MEAN CORPUSCULAR HGB CONC 31.7 g/dL (32.4-35.8); MEAN PLATELET VOLUME 7.5 fL (7.4-10.4); MONOCYTES % (AUTO) 9 % (2-9); NEUTROPHILS % (AUTO) 54 % (42-75); PLATELET COUNT 478 x10^3/uL (130-400); RED CELL DISTRIBUTION WIDTH 25.4 % (9.6-15.2)
[2021-01-08 00:23] LABS: ALANINE AMINOTRANSFERASE 14 U/L (12-78); ALBUMIN 2.4 g/dL (3.4-5.0); ANION GAP 5 mmol/L (5-15); CHLORIDE 112 mmol/L (98-107); CREATININE 0.95 mg/dL (0.55-1.02)
[2021-01-08 00:28] LABS: ALKALINE PHOSPHATASE 134 U/L (45-117); BILIRUBIN,TOTAL 0.1 mg/dL (0.2-1.0)
--- NOTE | 2021-01-08 00:50 | NUR ---
PT. REPORT GIVEN
--- NOTE | 2021-01-08 01:05 | NUR ---
Patient care assumed. Patient sleeping in [facility]. Respirations even and unlabored.
[2021-01-08 01:06] LABS: HYPOCHROMIA 2+
[2021-01-08 01:07] LABS: MICROCYTOSIS 2+; POLYCHROMASIA 1+; TARGET CELLS 1+
[2021-01-08 01:09] LABS: HOWELL-JOLLY BODIES 1+
[2021-01-08 01:10] LABS: <PLATELET ESTIMATE> INCREASED; <PLT MORPHOLOGY> NORMAL PLT MORPH
--- NOTE | 2021-01-08 01:30 | NUR ---
Patient unable to provide urine at this time.
--- NOTE | 2021-01-08 01:53 | NUR ---
Urine collected and sent to lab. Patient feeling nauseous. Meds admin per sep.
[2021-01-08] MEDS ORDERED: ONDANSETRON 2MG/ML, 2ML IVPush ONE (02:00)
[2021-01-08 02:05] LABS: MICROSCOPIC INDICATED
[2021-01-08] MEDS ORDERED: HYDROcodone/APAP 5/325 TABLET PO ONE (03:00)
[2021-01-08 03:01] VITALS: BP 103/60
[2021-01-08] MEDS ORDERED: HYDROcodone/APAP 5/325 TABLET ONE (03:03)
--- NOTE | 2021-01-08 03:11 | NUR ---
Medicated patient per sep. Discharge instructions given. All questions and concerns addressed. Patient ambulatory with a steady gait. Belongings with patient.
== END 2021-01-08 03:13 | disposition home or self-care (01) ==
LOC: ED 22:57
DX: N30.01 Acute cystitis with hematuria (principal); D53.9 Nutritional anemia, unspecified; R07.89 Other chest pain; R10.12 Left upper quadrant pain; R10.32 Left lower quadrant pain; Z86.718 Personal history of other venous thrombosis and embolism; Z90.49 Acquired absence of other specified parts of digestive tract
CPT/HCPCS: 36415; 74018; 76770; 80053; 81001; 83690; 84703; 85025; 87086; 96374; 96375; 96376; 99285; J1170; J2060; J2405

== ENCOUNTER 2021-01-12 11:31 | Emergency (ER) | payer OTHER ==
[~2021-01-12] VITALS: Ht 157.5 cm; Wt 81.9 kg
--- NOTE | 2021-01-12 14:23 | NUR ---
PT. IS A & O X 4 WITH A GCS OF 15. PT. PRESENTS TO THE ED WITH C/O WEAKNESS AND FEELIGN POORLY. PT. STATES SHE IS ANEMIC AND IS SCHEDULED FOR A BLOOD TRANSFUSION TOMORROW. PT. REPORTS CHEST TIGHTNESS AND FEELING NOT WELL. 12 LEAD EKG WAS DONE. LABS DRAWN AND SENT. PT. HAS THE CP MONITOR IN PLACE. PT.'S LUNGS ARE CTA. PT. IS PALE WITH CAP REFILL LESS THAN 3 SECONDS. PULSES ARE +2 THROUGHOUT. PT.'S ABD. IS SOFT AND ROUND WITH BS X 4 QUADS. PT.'S HOB IS ELEVATED GREATER THAN 30 DEGREES. VSS. SIDERAILS REMAIN UP X 2 WITH THE CALL LIGHT IN PLACE.
[2021-01-12 14:27] LABS: BASOPHILS % (AUTO) 1 % (0-1); EOSINOPHILS % (AUTO) 6 % (1-7); LYMPHOCYTES % (AUTO) 32 % (22-44); MEAN CORPUSCULAR HEMOGLOBIN 29.2 pg (27.0-34.8); MEAN CORPUSCULAR HGB CONC 31.8 g/dL (32.4-35.8); MEAN PLATELET VOLUME 7.6 fL (7.4-10.4); MONOCYTES % (AUTO) 9 % (2-9); NEUTROPHILS % (AUTO) 53 % (42-75); PLATELET COUNT 707 x10^3/uL (130-400); RED BLOOD COUNT 3.09 x10^6/uL (3.82-5.3); RED CELL DISTRIBUTION WIDTH 25.7 % (9.6-15.2)
[2021-01-12 14:34] LABS: ANION GAP 6 mmol/L (5-15); CALCIUM 8.6 mg/dL (8.5-10.1); CHLORIDE 106 mmol/L (98-107); CREATININE 1.09 mg/dL (0.55-1.02)
[2021-01-12 14:38] LABS: TROPONIN I < 0.015 ng/mL (0.000-0.045)
[2021-01-12 14:53] LABS: <PLATELET ESTIMATE> INCREASED; ANISOCYTOSIS 2+; HOWELL-JOLLY BODIES 1+; HYPOCHROMIA 1+; LARGE PLATELETS 1+; MICROCYTOSIS 1+; POLYCHROMASIA 1+; TARGET CELLS 1+
--- NOTE | 2021-01-12 16:01 | NUR ---
PT OK FOR D/C. PT GIVEN D/C INSTRUCTIONS, VERBALIZED UNDERSTANDING. PT HAS STEADY GAIT AND ALL OWN BELONGINGS UPON D/C.
[2021-01-12 16:02] VITALS: BP 115/87
== END 2021-01-12 16:04 | disposition home or self-care (01) ==
LOC: ED 11:38
DX: R07.89 Other chest pain (principal); D64.81 Anemia due to antineoplastic chemotherapy; R55 Syncope and collapse; R42 Dizziness and giddiness; R00.0 Tachycardia, unspecified; Z85.038 Personal history of other malignant neoplasm of large intestine
CPT/HCPCS: 36415; 71045; 80048; 82040; 84484; 85025; 93005; 99285

== ENCOUNTER 2021-02-06 19:56 | Emergency (ER) | payer OTHER ==
[~2021-02-06] VITALS: Ht 157.5 cm; Wt 82.1 kg
[2021-02-06 20:45] LABS: BASOPHILS % (AUTO) 1 % (0-1); EOSINOPHILS % (AUTO) 2 % (1-7); LYMPHOCYTES % (AUTO) 30 % (22-44); MEAN CORPUSCULAR HEMOGLOBIN 29.6 pg (27.0-34.8); MEAN CORPUSCULAR HGB CONC 32.2 g/dL (32.4-35.8); MEAN PLATELET VOLUME 7.9 fL (7.4-10.4); MONOCYTES % (AUTO) 9 % (2-9); NEUTROPHILS % (AUTO) 58 % (42-75); PLATELET COUNT 449 x10^3/uL (130-400); RED BLOOD COUNT 3.93 x10^6/uL (3.82-5.3); RED CELL DISTRIBUTION WIDTH 26.5 % (9.6-15.2)
[2021-02-06 20:50] LABS: ALANINE AMINOTRANSFERASE 21 U/L (12-78); ALBUMIN 3.3 g/dL (3.4-5.0); ANION GAP 6 mmol/L (5-15); CALCIUM 8.8 mg/dL (8.5-10.1); CHLORIDE 104 mmol/L (98-107); CREATININE 1.36 mg/dL (0.55-1.02)
[2021-02-06 20:55] LABS: ALKALINE PHOSPHATASE 124 U/L (45-117); BILIRUBIN,TOTAL 0.2 mg/dL (0.2-1.0); TOTAL PROTEIN 7.8 g/dL (6.4-8.2)
[2021-02-06 21:21] LABS: ANISOCYTOSIS 2+; MICROCYTOSIS 1+
[2021-02-06 21:22] LABS: <PLATELET ESTIMATE> INCREASED; HYPOCHROMIA 1+; POLYCHROMASIA 1+; TARGET CELLS 1+
[2021-02-06 21:23] LABS: LARGE PLATELETS 1+
[2021-02-07] MEDS ORDERED: RIVA10TA2 PO (16:04)
[2021-02-07] MEDS ORDERED: PROM25TA10 PO (16:04)
== END 2021-02-06 22:33 | disposition left against medical advice (07) ==
LOC: ED 22:27
DX: R10.84 Generalized abdominal pain (principal)
CPT/HCPCS: 36415; 80053; 83690; 84703; 85025; 99283

== ENCOUNTER 2021-02-07 14:38 | Day surgery (SDC) | payer OTHER ==
[~2021-02-07] VITALS: Ht 157.5 cm; Wt 81.6 kg
[2021-02-07] MEDS ORDERED: CHLORHEXIDINE 15 ML UDC PO ONE (15:30)
[2021-02-07] MEDS ORDERED: LACTATED RINGERS 1,000 ML IV SCH (15:30)
[2021-02-07] MEDS ORDERED: MIDAZOLAM 1 MG/ML, 2ML ONE (15:31)
[2021-02-07] MEDS ORDERED: FENTANYL PF 100 MCG/2ML ONE (15:31)
[2021-02-07 15:52] VITALS: BP 143/94
[2021-02-07] MEDS ORDERED: PROM25TA10 PO (16:04)
[2021-02-07] MEDS ORDERED: RIVA10TA2 PO (16:04)
[2021-02-07] MEDS ORDERED: APREPITANT 40 MG CAPSULE ONE (16:15)
[2021-02-07] MEDS ORDERED: OMNIPAQUE 350 MG/ML, 50 ML BOTTLE ONE (16:31)
[2021-02-07 16:48] LABS: PROTHROMBIN TIME 10.7 Seconds (9.6-11.5)
[2021-02-07] MEDS ORDERED: OXYcodone 5 MG/5 ML ORAL.SOL UDC ONE ×2 (17:03→19:41)
[2021-02-07] MEDS ORDERED: OMNIPAQUE 350 MG/ML, 50 ML BOTTLE IV ONE (17:46)
[2021-02-07] MEDS ORDERED: METHOCARBAMOL 1,000 MG in DEXTROSE 5% 100 ML IV PRN (18:00)
[2021-02-07] MEDS ORDERED: HYDROmorphone 1 MG/ML, 1ML INJ IVPush PRN (18:00)
[2021-02-07] MEDS ORDERED: ONDANSETRON 2MG/ML, 2ML IVPush PRN (18:00)
[2021-02-07] MEDS ORDERED: LORazepam 2 MG/ML, 1ML IVPush PRN (18:00)
[2021-02-07] MEDS ORDERED: PROMETHAZINE 25 MG SUPP PR PRN (18:00)
[2021-02-07] MEDS ORDERED: ACETAMINOPHEN 325 MG TABLET PO PRN (18:00)
[2021-02-07] MEDS ORDERED: PROMETHAZINE 25 MG/ML, 1ML IVPush PRN (18:00)
[2021-02-07] MEDS ORDERED: FENTANYL PF 100 MCG/2ML IV PRN (18:00)
[2021-02-07] MEDS ORDERED: MEPERIDINE/PF 25MG/0.5ML IVPush PRN (18:00)
[2021-02-07] MEDS ORDERED: OXYcodone 5 MG/5 ML ORAL.SOL UDC PO PRN (18:00)
[2021-02-07] MEDS ORDERED: FLUORESCEIN SODIUM 500 MG/5 ML ONE (18:05)
[2021-02-07] MEDS ORDERED: CEFAZOLIN 1,000 MG ONE (18:13)
[2021-02-07] MEDS ORDERED: DEXAMETHASONE 4 MG/ML, 1ML ONE (18:13)
[2021-02-07] MEDS ORDERED: PROPOFOL 10 MG/ML, 20ML ONE (18:13)
[2021-02-07] MEDS ORDERED: ONDANSETRON 2MG/ML, 2ML ONE (18:13)
== END 2021-02-07 20:20 | disposition home or self-care (01) ==
LOC: OR 14:38
PROVIDERS: ATTEND Student in an Organized Health Care Education/Training Program
DX: N13.30 Unspecified hydronephrosis (principal); C78.6 Secondary malignant neoplasm of retroperitoneum and peritoneum; Z20.822 Contact with and (suspected) exposure to COVID-19; Z79.01 Long term (current) use of anticoagulants; Z79.899 Other long term (current) drug therapy; Z85.51 Personal history of malignant neoplasm of bladder; Z86.711 Personal history of pulmonary embolism; Z86.718 Personal history of other venous thrombosis and embolism; Z88.0 Allergy status to penicillin; Z88.8 Allergy status to other drugs, medicaments and biological substances; Z93.3 Colostomy status
CPT/HCPCS: 36415; 52234; 52332; 74420; 85610; 87635; 88305; C2617; J0690; J1100; J2250; J2405; J2704; J3010; J7120; Q9967

== ENCOUNTER 2021-03-30 07:58 | Outpatient (CLI) | payer OTHER ==
[~2021-03-30 07:58] MED LIST changes: +OXYC1TAB12 PO; -OXYC1TAB14 PO; +OXYC1TAB16 PO; -OXYC1TAB17 PO; +PROM25TA10 PO
== END 2021-03-30 23:59 | disposition home or self-care (01) ==
LOC: RAD 07:58
PROVIDERS: ATTEND Pathology Hematology
DX: C18.1 Malignant neoplasm of appendix (principal)

== ENCOUNTER 2021-04-19 10:56 | Day surgery (SDC) | payer OTHER ==
[~2021-04-19] VITALS: Ht 157.5 cm; Wt 77.7 kg
[~2021-04-19 10:56] MED LIST changes: +ACETAMINOPHEN 650 MG/20.3 ML UDC ONE
[2021-04-19] MEDS ORDERED: CHLORHEXIDINE 15 ML UDC ONE (11:25)
[2021-04-19] MEDS ORDERED: ONABOTULINUMTOXINA 100 UNITS ONE (11:41)
[2021-04-19] MEDS ORDERED: ACET325C6 PO (11:45)
[2021-04-19] MEDS ORDERED: FESO4TAB PO (11:45)
[2021-04-19] MEDS ORDERED: GABA600T7 PO (11:45)
[2021-04-19] MEDS ORDERED: AMIT50TA PO (11:45)
[2021-04-19] MEDS ORDERED: VENL37.58 PO (11:45)
[2021-04-19] MEDS ORDERED: OXYC5CAP2 PO (11:45)
[2021-04-19] MEDS ORDERED: OMEP-110 PO (11:45)
[2021-04-19 11:46] VITALS: BP 121/90
[2021-04-19 11:52] LABS: MICROSCOPIC INDICATED
[2021-04-19] MEDS ORDERED: LACTATED RINGERS 1,000 ML IV SCH (12:00)
[2021-04-19] MEDS ORDERED: CHLORHEXIDINE 15 ML UDC PO ONE (12:00)
[2021-04-19] MEDS ORDERED: OMNIPAQUE 350 MG/ML, 50 ML BOTTLE ONE (12:23)
[2021-04-19] MEDS ORDERED: MIDAZOLAM 1 MG/ML, 2ML ONE (12:58)
[2021-04-19] MEDS ORDERED: FENTANYL PF 100 MCG/2ML ONE (13:20)
[2021-04-19] MEDS ORDERED: LEVOFLOXACIN/PMX 500MG/100ML 100 ML ONE (13:21)
== END 2021-04-19 16:05 | disposition home or self-care (01) ==
LOC: OUT 10:56
PROVIDERS: ATTEND Student in an Organized Health Care Education/Training Program
DX: Z46.6 Encounter for fitting and adjustment of urinary device (principal); N13.30 Unspecified hydronephrosis; N32.89 Other specified disorders of bladder; R35.0 Frequency of micturition; N39.41 Urge incontinence; Z20.822 Contact with and (suspected) exposure to COVID-19; Z79.01 Long term (current) use of anticoagulants; Z86.718 Personal history of other venous thrombosis and embolism
CPT/HCPCS: 52287; 52332; 74420; 81001; 87086; 87635; C2617; J0585; J1956; J2250; J3010; J7120; Q9967